=== PATIENT | female | born 1940 | race Caucasian/White ===

== ENCOUNTER → 2017-01-03 | Outpatient (CLI) | payer OTHER, MEDICARE | LOC: BMCIMAGING 08:45 | PROVIDERS: ATTEND Internal Medicine | DX: Z12.31 Encounter for screening mammogram for malignant neoplasm of breast (principal) | CPT/HCPCS: G0202 ==

== ENCOUNTER → 2017-01-06 | Outpatient (CLI) | payer OTHER, MEDICARE | LOC: BMCIMAGING 10:44 | PROVIDERS: ATTEND Internal Medicine | DX: R92.8 Other abnormal and inconclusive findings on diagnostic imaging of breast (principal) | CPT/HCPCS: G0206 ==

== ENCOUNTER → 2017-05-23 | Outpatient (CLI) | payer OTHER, MEDICARE | LOC: BMCIMAGING 10:03 | PROVIDERS: ATTEND Internal Medicine | DX: M25.562 Pain in left knee (principal); M17.12 Unilateral primary osteoarthritis, left knee ==

== ENCOUNTER → 2017-11-01 | Outpatient (CLI) | payer OTHER, MEDICARE | LOC: FIMAGING 15:27 | PROVIDERS: ATTEND Internal Medicine | DX: J42 Unspecified chronic bronchitis (principal) ==

== ENCOUNTER → 2017-11-17 | Outpatient (CLI) | payer OTHER, MEDICARE | LOC: BHFA 10:00 | PROVIDERS: ATTEND Internal Medicine Cardiovascular Disease | DX: J45.909 Unspecified asthma, uncomplicated (principal) ==

== ENCOUNTER 2018-07-05 06:01 | Inpatient (IN) | payer OTHER, MEDICARE ==
[2018-07-05] MEDS ORDERED: FAMOTIDINE 20 MG TAB PO ONE (06:14)
[2018-07-05] MEDS ORDERED: ceFAZolin 2 GM/DEXTROSE 100 ML IV ONE (06:14)
[2018-07-05] MEDS ORDERED: DEXAMETHASONE 4 MG/ML VIAL IVP ONE (06:14)
[2018-07-05] MEDS ORDERED: ACETAMINOPHEN 325 MG TAB PO ONE (06:14)
[2018-07-05] MEDS ORDERED: LR 1,000 ML IV ONE (06:15)
--- NOTE | 2018-07-05 06:15 | PDHPUP ---
History & Physical Update H&P update statement: This history and physical update is based on an assessment of the patient which was completed after admission or registration (within 24 hours), but prior to the surgery/procedure. H&P update: H&P reviewed & patient examined, no change in patient's condition since H&P completed
[2018-07-05] MEDS ORDERED: TRANEXAMIC ACID 3,000 MG/50 ML BAG IRR ONE (07:10)
[2018-07-05] MEDS ORDERED: MIDAZOLAM 2 MG/2 ML VIAL IVP ONE (07:20)
--- NOTE | 2018-07-05 07:22 | PDANEPAE ---
ANE Past Medical History - Cardiovascular History Hx Hypertension: No Hx Arrhythmias: No Hx Chest Pain: No Hx Coronary Artery / Peripheral Vascular Disease: No Hx CHF / Valvular Disease: No Hx Palpitations: No - Pulmonary History Hx COPD: No Hx Asthma/Reactive Airway Disease: Yes Hx Recent Upper Respiratory Infection: No Hx Oxygen in Use at Home: No Hx Sleep Apnea: No Sleep Apnea Screening Result - Last Documented: Negative - Neurologic History Hx Cerebrovascular Accident: No Hx Seizures: No Hx Dementia: No - Endocrine History Hx Diabetes: No - Renal History Hx Renal Disorders: No - Liver History Hx Hepatic Disorders: No - Neurological & Psychiatric Hx Hx Neurological and Psychiatric Disorders: No - Cancer History Hx Cancer: No - GI History GERD: no, mild Hx Gastrointestinal Disorders: No - Other Health History Other Health History: OSTEOARTHRITIS - Chronic Pain History Chronic Pain: Yes (RT KNEE) - Surgical History Prior Surgeries: BUNIONECTOMY ANE Review of Systems Review of systems is: negative Review of Systems: - Exercise capacity METS (RN): 3 METS ANE Patient History - Allergies Allergies/Adverse Reactions: amoxicillin Allergy (Severe, Verified 06/20/18 14:04) Unknown Penicillins Allergy (Severe, Verified 06/20/18 14:04) Unknown - Home Medications Home medications: home medication list seen and reviewed Home Medications: Acetaminophen [Tylenol ES 500 mg (*)] 1,000 mg PO HS 06/20/18 [Last Taken Unknown] Albuterol [Proventil Neb] 3 ml IH BID 06/20/18 [Last Taken Unknown] Aspirin/Acetaminophen/Caffeine [Excedrin Extra Strength Caplet] 2 tab PO DAILY 06/20/18 [Last Taken Unknown] Atorvastatin Calcium [Lipitor 10 mg (*)] 10 mg PO DAILY 06/20/18 [Last Taken Unknown] Budesonide [Budesonide 0.25MG/2Ml Neb (*)] 0.25 mg IH BID 06/20/18 [Last Taken Unknown] Calcium Carbonate/Vitamin D3 [CALCIUM 600 + VIT D TABLET] 1 each PO DAILY [Last Taken Unknown] Naproxen Sodium [Aleve] 220 mg PO DAILY PRN 06/20/18 [Last Taken Unknown] Williams-3 Fatty Acids [Fish Oil 1000 mg (*)] 1,000 mg PO DAILY 06/20/18 [Last Taken Unknown] Ranitidine HCl [Zantac] 150 mg PO DAILY 06/20/18 [Last Taken Unknown] - NPO status NPO Status: no food or drink >8 hours - Smoking Hx Smoking Status: Never smoked ANE Labs/Vital Signs - Labs - CBC Platelet Count: 301 - Vital Signs Vital Signs: reviewed preoperatively; see RN documention for details Height: 161.29 cm Weight: 75.75 kg ANE Physical Exam - Airway Neck exam: FROM Mallampati Score: Class 3 Mouth exam: normal dental/mouth exam - Pulmonary Pulmonary: clear to auscultation - Cardiovascular Cardiovascular: regular rate and rhythym - ASA Status ASA Status: III ANE Anesthesia Plan Anesthesia Plan: spinal Regional Anesthesia: adductor canal FNB
[2018-07-05] MEDS ORDERED: PROPOFOL/EMULSION 500 MG/50 ML BOTTLE IV ONE (07:31)
[2018-07-05] MEDS ORDERED: ROPIVACAINE 0.2% 80 MG, EPINEPHrine 0.2 MG, KETOROLAC TROMETHAMINE 30 MG in SYRINGE 0 ML IU ONE (08:00)
[2018-07-05] MEDS ORDERED: TRANEXAMIC ACID 3,000 MG in NS (SYRINGE) 50 ML IRR ONE (08:00)
[2018-07-05] MEDS ORDERED: ONDANSETRON 4 MG/2 ML VIAL ONE (08:56)
[2018-07-05] MEDS ORDERED: BUPIVACAINE/DEXTROSE 7.5MG/ML 2 ML SPINAL AMP SP ONE (08:56)
[2018-07-05] MEDS ORDERED: PHENYLEPHRINE HCL 100 MCG/ML SYR ONE (08:56)
[2018-07-05] MEDS ORDERED: fentaNYL 100 MCG/2 ML INJ IVP PRN (09:17)
[2018-07-05] MEDS ORDERED: NALOXONE HCL 0.4 MG/ML INJ IVP PRN (09:17)
[2018-07-05] MEDS ORDERED: PROMETHAZINE HCL 25 MG/ML INJ IVP PRN ×2 (09:17→09:37)
[2018-07-05] MEDS ORDERED: MEPERIDINE 25 MG/0.5 ML AMP IVP PRN (09:17)
[2018-07-05] MEDS ORDERED: HYDROmorphONE/DILAUDID 2 MG/ML INJ IVP PRN (09:17)
[2018-07-05] MEDS ORDERED: DEXAMETHASONE 4 MG/ML VIAL IVP PRN (09:17)
[2018-07-05] MEDS ORDERED: ONDANSETRON 4 MG/2 ML VIAL IVP PRN ×2 (09:17→09:37)
[2018-07-05] MEDS ORDERED: LR 500 ML IV PRN (09:17)
[2018-07-05] MEDS ORDERED: DIAZEPAM 5 MG/ML 1 ML SYR IVP PRN (09:17)
[2018-07-05] MEDS ORDERED: LABETALOL HCL 5 MG/ML 20 ML MDV IVP PRN (09:17)
[2018-07-05] MEDS ORDERED: METOCLOPRAMIDE 10 MG/2 ML VIAL IVP PRN ×2 (09:17→09:37)
[2018-07-05] MEDS ORDERED: ALBUTEROL 3 ML DEYVIAL IH PRN ×2 (09:17→12:31)
[2018-07-05] MEDS ORDERED: DIPHENOXYLATE/ATROPINE LOMOTIL 1 TAB PO PRN (09:37)
[2018-07-05] MEDS ORDERED: PROMETHAZINE HCL 25 MG SUPPR PR PRN (09:37)
[2018-07-05] MEDS ORDERED: MAGNESIUM HYDROXIDE 30 ML UDCUP PO PRN (09:37)
[2018-07-05] MEDS ORDERED: diphenhydrAMINE 25 MG CAP PO PRN (09:37)
[2018-07-05] MEDS ORDERED: POLYETHYLENE GLYCOL 3350 17 GM PKT PO PRN (09:37)
[2018-07-05] MEDS ORDERED: BISACODYL 10 MG SUPP PR PRN (09:37)
[2018-07-05] MEDS ORDERED: LACTULOSE 20 GM/30 ML UDCUP PO PRN (09:37)
[2018-07-05] MEDS ORDERED: ONDANSETRON DISINTEGRATING 4 MG TAB PO PRN (09:37)
[2018-07-05] MEDS ORDERED: TEMAZEPAM 15 MG CAP PO PRN (09:37)
--- NOTE | 2018-07-05 09:37 | POSTOPPROG ---
Post Op Note Date of Operation: 07/05/18 Surgeon: Didi Stevenson Driveway Attendant: ken stevenson PA-C and Salina Thakkar PA-C Anesthesiologist: dr. Calderon Anesthesia: LMA, Spinal, Other (Specify) (adductor canal block) Pre-op Diagnosis: left knee OA Post-op Diagnosis: same Indication: L knee pain Procedure: L TKA Findings: severe knee OA Inf/Abcess present in the surg proc area at time of surgery?: No EBL: 50-100
[2018-07-05] MEDS ORDERED: LR 1,000 ML IV SCH (10:00)
[2018-07-05] MEDS ORDERED: fentaNYL 100 MCG/2 ML INJ ONE (10:36)
--- NOTE | 2018-07-05 10:59 | POSTANESTH ---
Post Anesthetic Evaluation Cardiovascular Status: Normal, Stable Respiratory Status: Normal, Stable Level of Consciousness/Mental Status: Unconscious Pain Control: Adequate, Prn Tx Ordered Nausea/Vomiting Control: Adequate, Prn Tx Ordered Complications Possibly Related to Anesthesia: None Noted
[2018-07-05] MEDS: ACETAMINOPHEN 325 MG TAB PO SCH ×3 (11:36→23:23)
--- NOTE | 2018-07-05 11:55 | PDMN ---
Medical Necessity Medical necessity: Pt meets IP criteria as of 07/05/2018 per PA; est los > 2 mn for pain control and social support in the setting of deafness s/p TKA.
[2018-07-05] MEDS: oxyCODONE IR 5 MG TAB PO PRN ×3 (14:03→20:56)
--- NOTE | 2018-07-05 14:52 | ASMTCMCOM ---
CM Note CM Note Notes: Prior to pt surgery pt contacted CM a couple of times (email and telephone with administrative tech) and each time pt has been adamant she will go home and would like [facility] for HHC. PT eval pending. CM will follow up with pt now that she has had surgery. Date Signed: 07/05/2018 02:51 PM Electronically Signed By:KAVON Holguin
[2018-07-05] MEDS: ceFAZolin 2 GM/DEXTROSE 100 ML IV SCH ×2 (15:50→23:23)
[2018-07-05] MEDS ORDERED: ALBUTEROL 2.5 MG/0.5 ML IH PRN (17:15)
[2018-07-05] MEDS: ALBUTEROL SULFATE IH SCH (20:32)
[2018-07-05] MEDS: BUDESONIDE 0.5 MG/2 ML AMPUL.NEB IH SCH (20:33)
[2018-07-05] MEDS: ASPIRIN 81 MG CHEWABLE TAB PO SCH (20:57)
[2018-07-05] MEDS: FAMOTIDINE 20 MG TAB PO SCH (20:58)
[2018-07-05] MEDS: SENNOSIDES/DOCUSATE SODIUM TAB PO SCH (20:59)
[2018-07-05] MEDS ORDERED: ALBUTEROL 3 ML DEYVIAL IH SCH (21:00)
[2018-07-05] MEDS ORDERED: BUDESONIDE 0.25 MG/2 ML AMPUL.NEB IH SCH (21:00)
[2018-07-05] MEDS: CYCLOBENZAPRINE 10 MG TAB PO PRN (23:24)
[2018-07-06] MEDS: oxyCODONE IR 5 MG TAB PO PRN ×5 (03:34→21:02)
[2018-07-06] MEDS: ACETAMINOPHEN 325 MG TAB PO SCH ×3 (06:37→16:54)
[2018-07-06] MEDS: CYCLOBENZAPRINE 10 MG TAB PO PRN ×2 (08:22→15:38)
[2018-07-06] MEDS: FAMOTIDINE 20 MG TAB PO SCH ×2 (08:23→21:01)
[2018-07-06] MEDS: ASPIRIN 81 MG CHEWABLE TAB PO SCH ×2 (08:23→21:00)
[2018-07-06] MEDS: SENNOSIDES/DOCUSATE SODIUM TAB PO SCH ×2 (08:23→21:00)
[2018-07-06] MEDS: ALBUTEROL SULFATE IH SCH ×2 (08:56→20:34)
[2018-07-06] MEDS: BUDESONIDE 0.5 MG/2 ML AMPUL.NEB IH SCH ×2 (08:57→20:34)
[2018-07-06] MEDS ORDERED: ATORVASTATIN CALCIUM 10 MG TAB PO SCH (09:00)
--- NOTE | 2018-07-06 10:58 | SOAPPROG ---
SOAP Progress Note Assessment/Plan: Assessment: Patient is doing well POD 1 s/p L TKA Pain management: pain is well controlled on oral pain meds. VTE ppx: recommend aspirin 81 mg BID for 4 weeks, cont GWENDOLYN and SCDs Anemia: level is expected initially postop. Asymptomatic. Continue to monitor D/c planning:Patient would like home health PT. Encouraged patient that she needs to do exercises 2x per day even if home health PT is coming to her house. Encouraged transitioning to outpatient when possible. Encouraged patient that family, her sister and , need to assist her in postoperative care. Patient must be released from PT before discharge to home. Adductor canal nerve block is probably still alleviating pain. Some concern of patient's ability to manage pain due to anxiety once block has worn off. patient has had well controlled pain thus far and is tolerating medications. Encouraged family members to be present for discharge planning instructions to help patient postoperatively. Plan: 07/06/18 10:54 Subjective: Eli is doing well, pleasant this morning, well controlled pain, denies SOB, chest pain and N/V Objective: Vital Signs Temp Pulse Resp BP Pulse Ox 37.1 C 84 18 130/62 H 94 07/06/18 08:00 07/06/18 08:57 07/06/18 08:57 07/06/18 08:00 07/06/18 08:57 Laboratory Results 07/06/18 04:40 07/06/18 04:40 07/05/18 07/06/18 07/07/18 05:59 05:59 05:59 Intake Total 930 Output Total 1600 Balance -670 LLE: incision dressing is clean and dry, NVI, +pf/df ICD10 Worksheet Patient Problems: Problems Problem Status Onset Primary localized osteoarthritis of left knee Acute
[2018-07-06] MEDS: ATORVASTATIN CALCIUM 10 MG TAB PO SCH (11:17)
--- NOTE | 2018-07-06 12:17 | ASMTCMCOM ---
CM Note CM Note Notes: Pt now has had planned OA of knee. This CM met with pt via Liberian junior designer, present were her spouse and sister. Pt still wants to go home with [facility] who can accept pt. Pt reports [facility] can contact her at her email [email or web address] Pt reports she will not have friend/family who can translate for a home PT. Shahnaz at [facility] is notified and will investigate providing home PT with ASL salvage winder. Pt reports she has outpatient PT scheduled 07/24/18. Pt states she anticipates d/c tomorrow. CM to follow. Date Signed: 07/06/2018 12:17 PM Electronically Signed By:KAVON Holguin
--- NOTE | 2018-07-06 18:37 | GOP ---
[f rep st] OPERATIVE REPORT DATE OF OPERATION: 07/05/2018 SURGEON: Consuelo Mak MD RN DOCUMENT IMPROVEMENT SPECIALIST: MIRTHA Shen. ANESTHESIA: Spinal. PREOPERATIVE DIAGNOSIS: Left knee osteoarthritis. POSTOPERATIVE DIAGNOSIS: Left knee osteoarthritis. PROCEDURE PERFORMED: Left total knee arthroplasty. FINDINGS: ESTIMATED BLOOD LOSS: 30 cc. INDICATIONS: This is a 77-year-old female with severe and progressive pain and deformity of the left knee unresponsive to conservative care. Risks and benefits of the surgical intervention were explai enrique in detail. DESCRIPTION OF PROCEDURE: The patient was brought to the operative room and placed on the table in t he supine position. Spinal anesthesia was induced without difficulty. A pneumatic tourniquet was ap plied about the left proximal thigh, and the leg was prepped and draped in a sterile fashion. The le g mckeon was applied. After exsanguination by elevation the tourniquet was inflated to 250 mm of madelin cury. Incision was made anterior medial from the tibial tuberosity to a point 2 cm proximal to the superior pole of the patella. Medial parapatellar arthrotomy was carried out from the superior pole of the p atella and posteriorly in line with the fibers of the Type II VMO. The medial collateral ligament wa s elevated and the infrapatellar fat pad was resected. The patella was everted and the articular surface was excised. A 32 mm patellar button was placed. T he distal femoral guide hole was drilled and the 6 degree alignment elbret was placed. A 10 mm distal f emoral cut was made without difficulty. Attention was turned to the tibia and a 5 mm cut to the tibia based on the medial tibial condyle was performed. The tibial articular surface was excised without difficulty. Attention was turned back to the femur and a size 3 Triathlon femoral cutting block was positioned. Anterior, posterior, and chamfer cuts were made, followed by the intercondylar box cut. The knee was extended and the remnants of the medial and lateral meniscus were excised. The posterio r capsule was injected with ropivacaine, epinephrine and Toradol. A size 3 MIS mini-keel tibial tray was positioned. Trial reduction was then carried out. There was excellent range of motion, alignme nt, and stability using the 9 mm polyethylene. All trials were then removed. The joint was thoroughly irrigated and carefully dried. Two packages of cement and 2 grams of vancomycin were mixed in the vacuum mixer and placed on the fixation surface s of all surfaces of the components. The components were implanted and all excess cement was thoroug hly removed. The permanent 9 mm polyethylene was placed without difficulty. The tourniquet was deflated and all bleeders were coagulated. The wound was thoroughly irrigated and closed using interrupted sutures of 2-0 Vicryl for the joint capsule. The subcu was closed with 3-0 Vicryl and the skin with 4-0 Monocryl. Dermabond and Steri-Strips were applied followed by a compre ssive dressing. The patient was then moved from the operating room to the recovery room in good cond ition, having tolerated the procedure well. PATHOLOGY: Severe lateral and patellofemoral osteoarthritis. /[id number]/MODL
[2018-07-07] MEDS: ACETAMINOPHEN 325 MG TAB PO SCH ×2 (00:16→06:16)
[2018-07-07] MEDS: ALBUTEROL SULFATE IH SCH (08:15)
[2018-07-07] MEDS: BUDESONIDE 0.5 MG/2 ML AMPUL.NEB IH SCH (08:17)
[2018-07-07] MEDS: oxyCODONE IR 5 MG TAB PO PRN ×2 (08:37→12:12)
[2018-07-07] MEDS: ASPIRIN 81 MG CHEWABLE TAB PO SCH (08:39)
[2018-07-07] MEDS: SENNOSIDES/DOCUSATE SODIUM TAB PO SCH (08:41)
[2018-07-07] MEDS: ATORVASTATIN CALCIUM 10 MG TAB PO SCH (08:43)
[2018-07-07] MEDS: FAMOTIDINE 20 MG TAB PO SCH (08:43)
--- NOTE | 2018-07-07 09:13 | SOAPPROG ---
SOAP Progress Note Assessment/Plan: Assessment: Patient is doing well POD 2 s/p L TKA Pain management: pain is well controlled on oral pain meds. VTE ppx: recommend aspirin 81 mg BID for 4 weeks, cont GWENDOLYN and SCDs Anemia: level is expected initially postop. Asymptomatic. Continue to monitor D/c planning:Patient would like home health PT. Encouraged patient that she needs to do exercises 2x per day even if home health PT is coming to her house. Encouraged transitioning to outpatient when possible. Encouraged patient that family, her sister and , need to assist her in postoperative care. Encouraged patient to ask family members to be present for discharge planning instructions to help patient postoperatively. Patient states she does not need sign language interpreter for home health visits. She says she mainly requested the assistance while inpatient at the hospital. Patient would like to be discharged to home today. Plan: 07/06/18 10:54 07/07/18 09:09 Subjective: Eli is sitting comfortably in chair. eager for discharge. Denies SOB, chest pain and N/V. pain well controlled on oral pain meds. Objective: Vital Signs Temp Pulse Resp BP Pulse Ox 36.6 C 97 18 95/56 L 91 L 07/06/18 23:29 07/07/18 08:24 07/07/18 08:24 07/06/18 23:29 07/07/18 08:24 Laboratory Results 07/07/18 04:38 07/06/18 04:40 07/06/18 07/07/18 07/08/18 05:59 05:59 05:59 Intake Total 930 600 Output Total 1600 400 Balance -670 200 LLE; incision dressing is clean and dry, NVI, +pf/df ICD10 Worksheet Patient Problems: Problems Problem Status Onset Primary localized osteoarthritis of left knee Acute
--- NOTE | 2018-07-07 09:15 | PDFACE2FAC ---
Face to Face Encounter 1. I certify that this patient is under my care and that I, or a nurse practitioner or physician's respiratory therapist assistant working with me, had a ojat-ao-akpy encounter that meets the physician nlzn-pu-orhl encounter requirements with this patient on 07/07/18. 2. I certify that based on my findings, the following services are medically necessary home health services: [X Nursing] [X Physical Therapy] [ Speech-Language Pathology] 3. The medical condition and clinical findings that support the need for specialized skills, knowledge and judgement of the above services are: [s/p L TKA, will be using FWW, limited range of motion and mobility postop] 4. I certify this patient is homebound* because [the patient's condition restricts their ability to leave their home except with the assistance of another individual or the aid of a supportive device.] s/p L TKA. patient must use FWW for assistance, limited distance walking I certify that this patient is confined to his/her home and needs intermittent fpc care, physical and/or speech therapy. This patient is under my care and I have authorized home health services. * Homebound is defined by Medicare as follows: absences from home require considerable and tacking effort and or for medical reasons or church services or are infrequent or of short duration when for other reasons*.
--- NOTE | 2018-07-07 09:16 | PDIAF ---
- Diagnosis Diagnosis: s/p L TKA Code Status: Full Code - Medication Management Discharge Medications: electronically signed and located in the Home Medication List. - Orders Services needed: Certified Trailer Steerer, Physical Therapy Diet Recommendation: no restrictions on diet Diet Texture: Regular Texture Diet Additional Instructions: Joint Protocol-Knee Replacement Follow up with Dr. Cody office as scheduled After surgery instructions: You received an adductor canal nerve block yesterday. It alleviates pain for approximately 30 hours. Once the numbness to your anterior castro wears off, your pain will increase. Start taking narcotics even low dose narcotic pain meds as the numbness decreases Take Aspirin 81mg by mouth morning and evening for 4 weeks (helps to prevent blood clots) Wear thigh high GWENDOLYN hose on both legs during the daytime for 2 weeks (helps to prevent blood clots and decrease swelling in the surgical leg). It is ok to remove GWENDOLYN hose at night time to give your legs a break. It is common for swelling and bruising to occur in the entire surgical leg even extending to the foot, if concerned call Dr. Shah office [phone] Elevate the surgical leg with the ankle above the hip several times a day. ~ Ideally anytime you are resting throughout the day. Attempt to keep the knee straight while elevating by placing pillows under the ankle instead of the knee to elevate. This may be painful, so please do as much as tolerated. ~This will help you achieve full knee extension. Use a walker for 7-14 days Start outpatient physical therapy in 7-10 days Wear an chio wrap on the knee for 3-4 days after surgery, then it is no longer needed Do exercises in the book 2-3 times a day Ice at least 3-5 times a day for 30 minutes each time, if not more often. ~~We also recommend using the ice machine before falling asleep to help with pain If you have further questions that are not addressed here, please look at the information packet handed to you at the preop appointment. ~Most will be answered on the FAQs, after surgery instructions and incision care pages. *IF YOU HAVE A LIFE THREATENING EMERGENCY, CALL 911. FOR NON-LIFE THREATENING ISSUES, PLEASE CALL DR. CODY OFFICE FIRST. A PHYSICIAN IS CLOUD OPERATIONS ENGINEER 27/12. Incision/Dressing Care: May shower tomorrow, Incision dressing is waterproof. Do not soak in water, but shower is ok. Keep the incision (parmar) dressing clean and dry. If the incision dressing gets soiled or wet underneath, change dressing to the dressing given to you by the hospital. (parmar dressing will turn black if drainage occurs) Remove incision dressing (parmar one) two weeks after surgery. ~Leave steri strips alone. ~They will fall off on their own. Do not have anyone else remove the incision dressing prior to the stated recommendation (2 weeks after surgery). ~If there are incision concerns, contact Dr. Shah office. ~(Dr. Mak may remove earlier if concerns arise) If incision site (parmar dressing) has drainage call Dr. Shah office, [phone]. ~ Dr. Mak or his PAs may ask you to come into the office for further evaluation - Follow Up Care Current Providers and Referrals: Rikki Garcia MD [Primary Care Provider] - Shwetha Mak PA [Physician Figurine Maker] - 07/27/18 1:15 pm
[2018-07-07 10:51] VITALS: BP 119/78
--- NOTE | 2018-07-07 12:01 | ASMTLACE ---
LACE Length of stay for Answers: 3 days current admission Acuity / Level of Answers: Yes Care: Did the patient have an inpatient admission? Comorbidities - select Answers: Opioid dependence all that apply / Chronic pain # of Emergency department Answers: 0 visits in the last 6 months Score: 10 Date Signed: 07/07/2018 12:01 PM Electronically Signed By:KAVON Holguin
--- NOTE | 2018-07-07 12:25 | ASMTCMCOM ---
CM Note CM Note Notes: Pt medically stable for d/c with [facility], orders to be obtained [facility]. Pt states today she does not want/need a salesperson recreational vehicles, pt family supports this. Shahnaz at [facility] updated. Pt is told and emailed the [facility] PT appointment time of 07/08/18 1300, pt and her sister are also provided copies of the email. The email and [facility] brochure also include [facility] phone number. [facility] informed pt will leave door opened/unlocked in anticipation of the PT arrival because she will not be able to hear doorbell/knock. Date Signed: 07/07/2018 12:24 PM Electronically Signed By:KAVON Holguin
--- NOTE | 2018-07-07 15:01 | ASDISCHSUM ---
Discharge Information Plan Status:Home with Home Health Medically Cleared to Leave: Discharge Date:07/07/2018 12:31 PM CM D/C Disposition: ADT D/C Disposition:Home Health Service Projected Discharge Date:07/07/2018 11:00 AM Transportation at D/C: Discharge Delay Reason: Follow-Up Date:07/07/2018 11:00 AM Discharge Slot: Final Diagnosis: Placement Information Referral Type:*Home Health Care Services Referral ID:[id number] Provider Name:[facility] Address 1:[address] Address 2: City:[place] Selection Factors: State:[place] Patient Contact Information Contact Name:SUMEET Relationship: Address:[address] [facility] [place] [address] Work Phone: City:[place] Alternate Phone: State/Zip Code:[place] [address] Email: Financial Information Financial Class:Medicare Primary Plan Desc:MEDICARE INPATIENT Primary Plan Number:[id number] Secondary Plan Desc:AARP/MDR SUPPLEMENT Secondary Plan Number:[id number] Assessment Information LACE LACE Length of stay for Answers: 3 days current admission Acuity / Level of Answers: Yes Care: Did the patient have an inpatient admission? Comorbidities - select Answers: Opioid dependence all that apply / Chronic pain # of Emergency department Answers: 0 visits in the last 6 months Score: 10 Date Signed: 07/07/2018 12:01 PM Electronically Signed By:KAVON Holguin [facility] Progress Note CM Note CM Note Notes: Prior to pt surgery pt contacted CM a couple of times (email and telephone with revolving inventory clerk) and each time pt has been adamant she will go home and would like [facility] for HHC. PT eval pending. CM will follow up with pt now that she has had surgery. Date Signed: 07/05/2018 02:51 PM Electronically Signed By:KAVON Holguin [facility] CM Progress Note CM Note CM Note Notes: Pt now has had planned OA of knee. This CM met with pt via [place] wedding cake designer, present were her spouse and sister. Pt still wants to go home with [facility] who can accept pt. Pt reports [facility] can contact her at her email [email or web address] Pt reports she will not have friend/family who can translate for a home PT. Shahnaz at [facility] is notified and will investigate providing home PT with ASL handle turner. Pt reports she has outpatient PT scheduled 07/24/18. Pt states she anticipates d/c tomorrow. CM to follow. Date Signed: 07/06/2018 12:17 PM Electronically Signed By:KAVON Holguin [facility] CM Progress Note CM Note CM Note Notes: Pt medically stable for d/c with [facility], orders to be obtained via [employer]. Pt states today she does not want/need a handle turner, pt family supports this. Shahnaz at [facility] updated. Pt is told and emailed the [facility] PT appointment time of 07/08/18 1300, pt and her sister are also provided copies of the email. The email and [facility] brochure also include [facility] phone number. [facility] informed pt will leave door opened/unlocked in anticipation of the PT arrival because she will not be able to hear doorbell/knock. Date Signed: 07/07/2018 12:24 PM Electronically Signed By:KAVON Holguin Intervention Information Intervention Type:*Incorrect Registration Date of Service:07/05/2018 11:53 AM Patient Type:Inpatient Staff Member:Alma Delia Goldstein Hours: Discipline: Severity: Comment:
--- NOTE | 2018-07-12 10:16 | GDS ---
[f rep st] DISCHARGE SUMMARY ADMISSION DIAGNOSIS: Left knee osteoarthritis. DISCHARGE DIAGNOSIS: Left knee osteoarthritis. PROCEDURE: Left total knee arthroplasty. VTE PROPHYLAXIS: Recommend aspirin 81 mg twice daily for 4 weeks. BRIEF DESCRIPTION OF HOSPITAL STAY: Patient was admitted for an elective joint arthroplasty. The pa tient tolerated the procedure well and has passed physical therapy. The patient was given appropriat e antibiotic prophylaxis and venous thromboembolism prophylaxis. The patient's pain was well control led on oral pain medication, patient was holding down food, and had urinated. Decision was made to d ischarge the patient. The patient was given post-operative prescriptions pre-operatively. PLAN: Please follow up as scheduled with Dr. Mak's office in 3 weeks. Home health has been or dered for patient. /[id number]/MODL
== END 2018-07-07 12:31 | disposition home health service (06) | DRG 470 ==
LOC: F3N 06:01 → OBSVTOIN 09:40 → F3N 10:55
PROVIDERS: ADMIT Orthopaedic Surgery; ATTEND Orthopaedic Surgery
PROC: 0SRD0J9 Replacement of Left Knee Joint with Synthetic Substitute, Cemented, Open Approach (ICD-10-PCS; principal; 2018-07-05 08:00)
DX: M17.12 Unilateral primary osteoarthritis, left knee (principal); J45.909 Unspecified asthma, uncomplicated
CPT/HCPCS: 97110-GP; 97116-GP; 97161-GP; 97530-GP; C1713; J0171; J0690; J1885; J2250; J2270; J2370; J2405; J2704; J2795; J3010; J7626